=== PATIENT | male | born 1995 | race American Indian/Alaskan Native ===

== ENCOUNTER 2018-04-17 17:18 | Emergency (ER) | payer MEDICARE ==
[2018-04-17] MEDS ORDERED: NACL 0.9% 1000 ML 1,000 ML IV ONE ×3 (17:29→23:00)
[2018-04-17] MEDS ORDERED: NACL 0.9% 1000 ML IV ONE (18:00)
[2018-04-17] MEDS ORDERED: ZOFRAN IV ONE ×2 (18:01→20:12)
--- NOTE | 2018-04-17 19:24 | XRay Report ---
FINAL REPORT PROCEDURE: XR CHEST ROUTINE 2V TECHNIQUE: PA and lateral chest radiographs were obtained. CPT 99014 HISTORY: cough, low grade temp COMPARISON: No prior studies are available for comparison. FINDINGS: Heart: Normal. Mediastinum/Vessels: Normal. Lungs/Pleural space: No infiltrate, effusion, or pneumothorax. Bony thorax: No acute osseous abnormality. Other: IMPRESSION: No pulmonary infiltrates.
[2018-04-17 20:03] LABS: Basophils % (Auto) 0.3 % (0.0-1.8); Eosinophils % (Auto) 0.3 % (0.0-4.3); Hemoglobin 14.5 gm/dl (11.8-15.2); Lymphocytes # (Auto) 0.3 K/mm3 (1.2-5.4); Lymphocytes % (Auto) 3.5 % (13.4-35.0); Mean Corpuscular HGB Conc 33 % (32-34); Mean Corpuscular Hemoglobin 31 pg (28-32); Mean Corpuscular Volume 92 fl (84-94); Monocytes # (Auto) 0.6 K/mm3 (0.0-0.8); Monocytes % (Auto) 6.9 % (0.0-7.3); Platelet Count 218 K/mm3 (140-440); Red Blood Count 4.76 M/mm3 (3.65-5.03); Red Cell Distribution Width 12.2 % (13.2-15.2)
[2018-04-17 20:28] LABS: Alanine Aminotransferase 13 units/L (7-56); Albumin 4.2 g/dL (3.9-5); BUN/Creatinine Ratio 8; Blood Urea Nitrogen 7 mg/dL (9-20); Hemolysis Index 4; Lipase 13 units/L (13-60)
--- NOTE | 2018-04-17 20:59 | Emergency Department Report ---
ED Abdominal Pain HPI - General Chief Complaint: Abdominal Pain Stated Complaint: VOMITING Time Seen by Provider: 04/17/18 17:59 Source: patient Mode of arrival: Ambulatory Limitations: No Limitations - History of Present Illness Initial Comments: 23-year-old male presents to the hospital and nausea, vomiting, and abdominal pain 2 days. Patient having yellow emesis. Presents with low-grade temperature here but home. No diarrhea. Patient has some sort mental health problem were developmental delay. Severity scale (0 -10): 0 - Related Data Previous Rx's Medication Instructions Recorded Last Taken Type Acetaminophen [Acetaminophen TAB] 500 mg PO Q4HR PRN #30 tablet 04/18/18 Unknown Rx Benzonatate [Tessalon Perles] 100 mg PO Q8HR PRN #30 capsule 04/18/18 Unknown Rx Ondansetron [Zofran Odt] 4 mg PO Q8HR PRN #20 tab.rapdis 04/18/18 Unknown Rx Sulfamethoxazole/Trimethoprim 1 each PO BID #10 tablet 04/18/18 Unknown Rx [Bactrim Ds Tablet] Allergies Allergy/AdvReac Type Severity Reaction Status Date / Time No Known Allergies Allergy Unverified 04/17/18 17:22 ED Review of Systems ROS: Stated complaint: VOMITING Other details as noted in HPI Comment: All other systems reviewed and negative ED Past Medical Hx - Past Medical History Previous Medical History?: Yes - Surgical History Past Surgical History?: Yes Additional Surgical History: hernia repair - Social History Smoking Status: Current Every Day Smoker Substance Use Type: None - Medications Home Medications: Home Medications Medication Instructions Recorded Confirmed Last Taken Type Acetaminophen [Acetaminophen TAB] 500 mg PO Q4HR PRN #30 tablet 04/18/18 Unknown Rx Benzonatate [Tessalon Perles] 100 mg PO Q8HR PRN #30 capsule 04/18/18 Unknown Rx Ondansetron [Zofran Odt] 4 mg PO Q8HR PRN #20 tab.rapdis 04/18/18 Unknown Rx Sulfamethoxazole/Trimethoprim 1 each PO BID #10 tablet 04/18/18 Unknown Rx [Bactrim Ds Tablet] ED Physical Exam - General Limitations: No Limitations - Other Other exam information: General: No limitations, patient is alert in no acute distress Head exam: Atraumatic, normocephalic Eyes exam: Normal appearance, nonicteric sclerae ENT: Moist mucous membrane, normal oropharynx Neck exam: Normal inspection, full range of motion, no meningismus nontender Respiratory exam: Clear to auscultation bilateral, no wheezes, rales, crackles Cardiovascular: Normal rate and rhythm, normal heart sounds Abdomen: Soft, nondistended, and nontender, with normal bowel sounds, no rebound, or guarding. multiple episodes of postusive Vomiting noted Extremity: Full range of motion normal inspection no deformity Back: Normal Inspection, full range of motion, no tenderness Neurologic: Alert, oriented x3, cranial nerves intact, no motor or sensory deficit Psychiatric: normal affect, normal mood Skin: Warm, dry, intact ED Course Vital Signs 04/17/18 04/17/18 04/17/18 17:22 18:56 19:00 Temperature 100.2 F H Pulse Rate 107 H 107 H 102 H Respiratory 33 H 29 H Rate Blood Pressure 127/76 123/71 Blood Pressure 123/71 [Left] O2 Sat by Pulse 99 94 98 Oximetry 04/17/18 04/17/18 04/17/18 21:45 21:46 23:50 Temperature 99.6 F 100 F H Pulse Rate 97 H 104 H 108 H Respiratory 27 H 36 H 24 Rate Blood Pressure 144/66 Blood Pressure 144/66 151/58 [Left] O2 Sat by Pulse 97 99 95 Oximetry 04/18/18 04/18/18 04/18/18 00:46 00:50 00:53 Temperature 98.5 F Pulse Rate Respiratory 20 Rate Blood Pressure 136/64 Blood Pressure [Left] O2 Sat by Pulse 97 Oximetry ED Medical Decision Making - Lab Data Result diagrams: 04/17/18 19:42 04/17/18 19:42 Lab Results 04/17/18 04/17/18 04/17/18 Range/Units 19:42 19:42 19:42 WBC 8.7 (4.5-11.0) K/mm3 RBC 4.76 (3.65-5.03) M/mm3 Hgb 14.5 (11.8-15.2) gm/dl Hct 44.0 (35.5-45.6) % MCV 92 (84-94) fl MCH 31 (28-32) pg MCHC 33 (32-34) % RDW 12.2 L (13.2-15.2) % Plt Count 218 (140-440) K/mm3 Lymph % (Auto) 3.5 L (13.4-35.0) % Yell % (Auto) 6.9 (0.0-7.3) % Eos % (Auto) 0.3 (0.0-4.3) % Baso % (Auto) 0.3 (0.0-1.8) % Lymph # 0.3 L (1.2-5.4) K/mm3 Yell # 0.6 (0.0-0.8) K/mm3 Eos # 0.0 (0.0-0.4) K/mm3 Baso # 0.0 (0.0-0.1) K/mm3 Seg Neutrophils % 89.0 H (40.0-70.0) % Seg Neutrophils # 7.8 H (1.8-7.7) K/mm3 Sodium 141 (137-145) mmol/L Potassium 4.1 (3.6-5.0) mmol/L Chloride 101.3 (98-107) mmol/L Carbon Dioxide 26 (22-30) mmol/L Anion Gap 18 mmol/L BUN 7 L (9-20) mg/dL Creatinine 0.9 (0.8-1.5) mg/dL Estimated GFR > 60 ml/min BUN/Creatinine Ratio 8 % Glucose 100 (75-100) mg/dL Lactic Acid 2.50 H* (0.7-2.0) mmol/L Calcium 9.0 (8.4-10.2) mg/dL Total Bilirubin 0.70 (0.1-1.2) mg/dL AST 13 (5-40) units/L ALT 13 (7-56) units/L Alkaline Phosphatase 75 (35-129) units/L Total Protein 7.4 (6.3-8.2) g/dL Albumin 4.2 (3.9-5) g/dL Albumin/Globulin Ratio 1.3 % Lipase 13 (13-60) units/L 04/17/18 04/17/18 Range/Units 21:30 22:04 WBC (4.5-11.0) K/mm3 RBC (3.65-5.03) M/mm3 Hgb (11.8-15.2) gm/dl Hct (35.5-45.6) % MCV (84-94) fl MCH (28-32) pg MCHC (32-34) % RDW (13.2-15.2) % Plt Count (140-440) K/mm3 Lymph % (Auto) (13.4-35.0) % Yell % (Auto) (0.0-7.3) % Eos % (Auto) (0.0-4.3) % Baso % (Auto) (0.0-1.8) % Lymph # (1.2-5.4) K/mm3 Yell # (0.0-0.8) K/mm3 Eos # (0.0-0.4) K/mm3 Baso # (0.0-0.1) K/mm3 Seg Neutrophils % (40.0-70.0) % Seg Neutrophils # (1.8-7.7) K/mm3 Sodium (137-145) mmol/L Potassium (3.6-5.0) mmol/L Chloride (98-107) mmol/L Carbon Dioxide (22-30) mmol/L Anion Gap mmol/L BUN (9-20) mg/dL Creatinine (0.8-1.5) mg/dL Estimated GFR ml/min BUN/Creatinine Ratio % Glucose (75-100) mg/dL Lactic Acid 2.70 H* 2.30 H* (0.7-2.0) mmol/L Calcium (8.4-10.2) mg/dL Total Bilirubin (0.1-1.2) mg/dL AST (5-40) units/L ALT (7-56) units/L Alkaline Phosphatase (35-129) units/L Total Protein (6.3-8.2) g/dL Albumin (3.9-5) g/dL Albumin/Globulin Ratio % Lipase (13-60) units/L - Radiology Data Radiology results: report reviewed FINAL REPORT PROCEDURE: CT ABDOMEN PELVIS W CON TECHNIQUE: Computerized axial tomography of the abdomen and pelvis was performed after the IV injection of iodinated nonionic contrast. HISTORY: n,v, abd pain COMPARISON: No prior studies are available for comparison. FINDINGS: Visualized lower thorax: No significant abnormality. Liver: Normal size and attenuation. Spleen: Normal size and attenuation. Gallbladder and biliary system: Normal. Pancreas: Normal. Adrenals: Normal. Kidneys: Normal. GI tract: The appendix is visualized and does not appear inflamed. The colon is not fully distended. Questionable diffuse colonic wall thickening. No significant inflammatory changes are seen. No evidence of bowel obstruction. Lymph nodes and mesentery: Normal. Vasculature: Normal. Bladder: Normal. Reproductive organs: Normal. Peritoneum: No free fluid. Musculoskeletal structures: No significant abnormality. Other: None. IMPRESSION: No bowel obstruction. No acute inflammatory changes are seen. There is questionable mild diffuse colonic wall thickening which could be related to lack of distention. If there is concern for colitis, follow-up CT with oral contrast could be obtained. FINAL REPORT PROCEDURE: XR CHEST ROUTINE 2V TECHNIQUE: PA and lateral chest radiographs were obtained. CPT 05023 HISTORY: cough, low grade temp COMPARISON: No prior studies are available for comparison. FINDINGS: Heart: Normal. Mediastinum/Vessels: Normal. Lungs/Pleural space: No infiltrate, effusion, or pneumothorax. Bony thorax: No acute osseous abnormality. Other: IMPRESSION: No pulmonary infiltrates. - Medical Decision Making Vomiting controlled after Zofran and Phenergan Patient does not have abdominal pain but given presenting symptoms , mental delay, and elevated lactic acid CT was obtained CT does not reveal any acute findings and patient is not having diarrhea to suggest a diagnosis of colitis pt did not have urine output until he received 3.8L of NS UA with increased WBC count and High SG pt tx with rocephin and azithromycin will be d/chikis on uti abx lactic acid normal after IVF resuscitate and repeat blood draws - Differential Diagnosis gastritis, obstruction, uti, cholecystitis, appy Critical Care Time: No Critical care attestation.: If time is entered above; I have spent that time in minutes in the direct care of this critically ill patient, excluding procedure time. ED Disposition Clinical Impression: UTI (urinary tract infection), Dehydration, Post-tussive vomiting Disposition: DC-01 TO HOME OR SELFCARE Is pt being admited?: No Does the pt Need Aspirin: No Condition: Stable Instructions: Urinary Tract Infection in Men (ED), Acute Nausea and Vomiting ( ED) Additional Instructions: Take the medication as prescribed. Follow up with your doctor or doctor/clinic provided. Return if symptoms worsen as indicated by your discharge instructions. Mental health clinic follow-up information has been provided as requested. Prescriptions: Acetaminophen [Acetaminophen TAB] 500 mg PO Q4HR PRN #30 tablet PRN Reason: Fever >101 Benzonatate [Tessalon Perles] 100 mg PO Q8HR PRN #30 capsule PRN Reason: Cough Ondansetron [Zofran Odt] 4 mg PO Q8HR PRN #20 tab.rapdis PRN Reason: Vomiting Sulfamethoxazole/Trimethoprim [Bactrim Ds Tablet] 1 each PO BID #10 tablet Referrals: [facility] [Outside] - 3-5 Days PRIMARY CARE, [Primary Care Provider] - 3-5 Days [facility] [Provider Group] - 3-5 Days OSWALD HOOK MD [Staff Physician] - 3-5 Days Time of Disposition: 02:00
--- NOTE | 2018-04-17 22:23 | Cat Scan Report ---
FINAL REPORT PROCEDURE: CT ABDOMEN PELVIS W CON TECHNIQUE: Computerized axial tomography of the abdomen and pelvis was performed after the IV injection of iodinated nonionic contrast. HISTORY: n,v, abd pain COMPARISON: No prior studies are available for comparison. FINDINGS: Visualized lower thorax: No significant abnormality. Liver: Normal size and attenuation. Spleen: Normal size and attenuation. Gallbladder and biliary system: Normal. Pancreas: Normal. Adrenals: Normal. Kidneys: Normal. GI tract: The appendix is visualized and does not appear inflamed. The colon is not fully distended. Questionable diffuse colonic wall thickening. No significant inflammatory changes are seen. No evidence of bowel obstruction. Lymph nodes and mesentery: Normal. Vasculature: Normal. Bladder: Normal. Reproductive organs: Normal. Peritoneum: No free fluid. Musculoskeletal structures: No significant abnormality. Other: None. IMPRESSION: No bowel obstruction. No acute inflammatory changes are seen. There is questionable mild diffuse colonic wall thickening which could be related to lack of distention. If there is concern for colitis, follow-up CT with oral contrast could be obtained.
[2018-04-17] MEDS ORDERED: PHENERGAN PO ONE (23:42)
[2018-04-17] MEDS ORDERED: TYLENOL PO ONE (23:43)
[2018-04-18 00:18] LABS: Bilirubin,Urine NEG (Negative); Blood,Urine NEG (Negative); Color,Urine Yellow (Yellow); Mucus,Urine 3+ /HPF
[2018-04-18] MEDS ORDERED: ROCEPHIN 250 MG in NACL 0.9% 50 ML IV ONE (00:33)
[2018-04-18] MEDS ORDERED: ZITHROMAX PO ONE (00:33)
[2018-04-18] MEDS ORDERED: TESSALON PERLES PO ONE (00:50)
[2018-04-18 06:47] VITALS: BP 129/67
== END 2018-04-18 08:43 | disposition home or self-care (01) ==
LOC: ED 17:18
DX: N39.0 Urinary tract infection, site not specified (principal); E86.0 Dehydration; R11.10 Vomiting, unspecified; F17.200 Nicotine dependence, unspecified, uncomplicated
CPT/HCPCS: 36415; 71046; 74177; 80053; 81001; 82140; 83690; 85025; 87040; 87086; 96361; 96365; 96375; 96376; 99285; J0696; J2405; J7030; Q9967; Q0169